=== PATIENT | female | born 1980 | race Caucasian/White ===

== ENCOUNTER 2017-08-15 16:58 | Emergency (ER) | payer MEDICAID, OTHER ==
[2017-08-15 17:21] VITALS: TEMP 98.9
--- NOTE | 2017-08-15 18:33 | C.PDOC ---
History Of Present Illness 36 yr old female presents to the ER for evaluation if congestion and fullness to the sinuses. Patient reports she is s/p termination 1 month ago and was sexually active shorty after. States she has taken multiple home test which have been positive. Patient denies taking any medications. Also denies fever, chills, chest pain, SOB, nausea, vomiting, abdominal pain, dysuria, vaginal discharge, vaginal bleeding weakness or numbness. Time Seen by Provider: 08/15/17 17:27 Chief Complaint (Nursing): Medical Clearance History Per: Patient History/Exam Limitations: no limitations Onset/Duration Of Symptoms: Days Past Medical History Reviewed: Historical Data, Nursing Documentation, Vital Signs Vital Signs: Last Vital Signs Temp 98.9 F 08/15/17 17:18 Pulse 68 08/15/17 18:40 Resp 18 08/15/17 18:40 BP 121/62 08/15/17 18:40 Pulse Ox 98 08/15/17 18:40 Family History: States: No Known Family Hx - Social History Hx Tobacco Use: No Hx Alcohol Use: No Hx Substance Use: No - Immunization History Hx Tetanus Toxoid Vaccination: No Hx Influenza Vaccination: No Hx Pneumococcal Vaccination: No Review Of Systems Except As Marked, All Systems Reviewed And Found Negative. Constitutional: Negative for: Fever, Chills ENT: Positive for: Nose Congestion, Other ((+) Fullness to the sinus.) Cardiovascular: Negative for: Chest Pain Respiratory: Negative for: Shortness of Breath Gastrointestinal: Negative for: Nausea, Vomiting, Abdominal Pain Genitourinary: Negative for: Dysuria, Vaginal Discharge, Vaginal Bleeding Neurological: Negative for: Weakness, Numbness Physical Exam - Physical Exam Appears: Non-toxic, No Acute Distress Skin: Warm, Dry Head: Atraumatic, Normacephalic Nose: Other ((+) Inflamation to the anterior face and anterior sinuses. ) Oral Mucosa: Moist Throat: Normal, No Erythema, No Exudate, No Drooling Neck: Normal, Normal ROM, Supple Chest: Symmetrical, No Tenderness Cardiovascular: Rhythm Regular, No Murmur Respiratory: Normal Breath Sounds, No Rales, No Rhonchi, No Stridor, No Wheezing Extremity: Normal ROM, No Swelling Neurological/Psych: Oriented x3, Normal Speech, Normal Motor ED Course And Treatment O2 Sat by Pulse Oximetry: 99 (RA) Pulse Ox Interpretation: Normal Medical Decision Making Medical Decision Making: PLAN: * POC * Prednisone PO Disposition Counseled Patient/Family Regarding: Diagnosis - Disposition Disposition: HOME/ ROUTINE Disposition Time: 18:31 Condition: IMPROVED Additional Instructions: Please follow up with your [employer] for post procedure evaluation Prescriptions: Loratadine/Pseudoephedrine [Claritin-D 24 Hour Tablet] 1 each PO DAILY #10 tab.er.24h Instructions: Allergic Rhinitis (ED) Forms: [facility] ([place]), General Discharge Instructions - POA Present On Arrival: None - Clinical Impression Clinical Impression: Allergic rhinitis - Scribe Statement The provider has reviewed the documentation as recorded by the Marcusibe Lidia Bashir Provider Attestation: All medical record entries made by the Marcusibe were at my direction and personally dictated by me. I have reviewed the chart and agree that the record accurately reflects my personal performance of the history, physical exam, medical decision making, and the department course for this patient. I have also personally directed, reviewed, and agree with the discharge instructions and disposition.
[2017-08-15 18:40] VITALS: BP 121/62; PULSE 68; RESP 18
[2017-08-15 18:50] VITALS: O2SAT 99
== END 2017-08-15 18:40 | disposition home or self-care (01) ==
LOC: C.ER 16:58
DX: J30.9 Allergic rhinitis, unspecified (principal)